=== PATIENT | female | born 1985 | race Caucasian/White ===

== ENCOUNTER → 2016-07-22 | Outpatient (CLI) | payer BC, OTHER ==
[2016-07-22 11:15] LABS: CH 31.9; CHCM 34.5; HCT 32.5 % (34.0-46.0); HDW 2.71; HGB 10.9 gm/dL (11.4-16.0); MCHC 33.4 g/dL (31.0-37.0); MCV 92.8 fL (80.0-100.0); Mean Platelet Volume 7.3; RDW 13.4 % (11.5-15.5); WBC 13.6 k/uL (3.8-10.6)
== END | disposition home or self-care (01) ==
LOC: LABWHC1 09:33
PROVIDERS: ATTEND Obstetrics & Gynecology
DX: Z34.92 Encounter for supervision of normal pregnancy, unspecified, second trimester (principal); Z3A.00 Weeks of gestation of pregnancy not specified
CPT/HCPCS: 36415; 82950; 85027; 86850

== ENCOUNTER 2016-08-01 23:05 | Outpatient (CLI) | payer BC, OTHER | END 2016-08-01 23:55 | disposition home or self-care (01) | LOC: FBPOP 23:05 | PROVIDERS: ATTEND Obstetrics & Gynecology | DX: O26.853 Spotting complicating pregnancy, third trimester (principal); Z3A.29 29 weeks gestation of pregnancy | CPT/HCPCS: 59025; 99213 ==

== ENCOUNTER → 2016-08-22 | Outpatient (CLI) | payer BC, OTHER ==
--- NOTE | 2016-08-22 13:40 | US ---
EXAMINATION TYPE: US OB anatomy transabd third trimester DATE OF EXAM: 08/22/2016 10:02 AM COMPARISON: NONE HISTORY: LGA, smoker; TECHNIQUE: Transabdominal (TA) EXAM MEASUREMENTS: GESTATIONAL AGE / DATING Physician Established: (32 weeks/6 days) EDC: 10/11/2016 Dates by LMP: (32 weeks/6 days) EDC: 10/11/2016 Dates by First Scan: (today Dates by Current Scan for: (32 weeks/4 days) EDC: 10/13/2016 SURVEY IUP: Single PLACENTA: Anterior PREVIA: No previa BAMBI: 19.2 cm Normal CERVICAL LENGTH (transabdominal: norm > 3.0cm): 3.4 cm BIOMETRY PRESENTATION: Vertex LIE: Longitudinal BPD: 8.3 cm 33 weeks / 4 days HC: 30.5 cm 33 weeks / 6 days AC: 29.2 cm 33 weeks / 1 day FL: 6.2 cm 32 weeks / 0 day ESTIMATED WEIGHT IN GRAMS: 2078.0 grams ESTIMATED WEIGHT IN LBS/OZ: 4 lbs. 9 oz. WEIGHT PERCENTAGE BASED ON ESTABLISHED DATE: 42.1 % HC/AC: 1.05 FL/AC: 21.11 HEART RATE: 143 bpm RHYTHM: Normal ANATOMY SEEN (within normal limits): Midline Falx Stomach Situs Nose / Lips Diaphragm Bladder Cord Insert Three Vessel Cord Longitudinal Spine Transverse Spine Legs (bilateral) ANATOMY SEEN (does not appear within normal limits): ANATOMY NOT SEEN: * Lateral Vent (< 1 cm) cm * Cisterna Magna (< 1.1 cm) cm * Nuchal Fold (< 0.6 cm) cm * Cerebellum (varies with age) cm Choroid Plexus (bilateral) Cavus Septi Pellucidi Four Chamber Heart Outflow tracts: LVOT/RVOT Arms (bilateral) Kidneys (bilateral) TECHNOLOGIST IMPRESSION: Single, live IUP,32 weeks/4 days, EDC: 10/13/2016; HR 143 bpm; Limited feta l anatomy survey due later gestation. Single live intrauterine gestation is present. Normal cephalad presentation to fetus is seen. Amnioti c fluid index is upper limits of normal. biometry measurements are congruent and within normal limits. Detailed anatomical survey shows no suspicious abnormality but is suboptimal due to advanced age, above structures are suboptimally seen during real-time scanning. Other structures noted a dayron appear satisfactory during real-time scanning and still images saved. IMPRESSION: As above.
== END | disposition home or self-care (01) ==
LOC: RADUSWWP 08:47
PROVIDERS: ATTEND Obstetrics & Gynecology
DX: O36.63X0 Maternal care for excessive fetal growth, third trimester, not applicable or unspecified (principal); Z3A.32 32 weeks gestation of pregnancy
CPT/HCPCS: 76811

== ENCOUNTER 2016-10-07 05:55 | Inpatient (IN) | payer BC, OTHER ==
[2016-10-07 06:13] VITALS: BMI 32.4
[2016-10-07] MEDS ORDERED: CARBOPROST TROMETHAMINE 250 MCG/ML 1 ML AMP IM PRN (06:13)
[2016-10-07] MEDS ORDERED: OXYTOCIN 10 UNIT/ML 1 ML VIAL IM PRN (06:13)
[2016-10-07] MEDS ORDERED: TERBUTALINE 1 MG/ML VIAL SQ PRN (06:13)
[2016-10-07] MEDS ORDERED: LIDOCAINE 1% (PF) 10 MG/ML (30 ML SDV) SQ PRN (06:13)
[2016-10-07] MEDS ORDERED: METHYLERGONOVINE 0.2 MG/ML 1 ML AMP IM PRN (06:13)
[2016-10-07 06:36] LABS: Basophils % (A) 0 %; CHCM 35.4; Eosinophils # (A) 0.1 k/uL (0-0.7); Eosinophils % (A) 1 %; HCT 32.5 % (34.0-46.0); HDW 2.87; HGB 11.5 gm/dL (11.4-16.0); Luc % (Auto) 2; Lymphocytes # (A) 2.4 k/uL (1.0-4.8); Lymphocytes % (A) 23 %; MCH 32.3 pg (25.0-35.0); MCHC 35.4 g/dL (31.0-37.0); MCV 91.1 fL (80.0-100.0); Mean Platelet Volume 7.7; Monocytes # (A) 0.4 k/uL (0-1.0); Monocytes % (A) 4 %; Neutrophils # (A) 7.2 k/uL (1.3-7.7); Neutrophils % (A) 70 %; RBC 3.56 m/uL (3.80-5.40); RDW 13.6 % (11.5-15.5); WBC 10.3 k/uL (3.8-10.6); WBC (Perox) 10.28
[2016-10-07] MEDS: LACTATED RINGERS 1,000 ML IV SCH ×4 (06:36→18:48)
[2016-10-07] MEDS: OXYTOCIN 30 UNITS/500 ML NS 30 UNIT in SALINE 1 500ML.BAG IV SCH (06:38)
[2016-10-07] MEDS ORDERED: BUPIVACAINE (PF) 0.25% 30 ML VIAL ONE (11:20)
[2016-10-07] MEDS ORDERED: SODIUM CHLORIDE 0.9% 100 ML BAG ONE (11:20)
[2016-10-07] MEDS ORDERED: fentaNYL (PF) 50 MCG/ML 5 ML AMP ONE (11:20)
[2016-10-07] MEDS ORDERED: BUPIVACAINE (PF) 0.25% 25 ML, fentaNYL (PF) 200 MCG in SODIUM CHLORIDE 0.9% 71 ML EPIDURAL ONE (11:32)
[2016-10-07] MEDS ORDERED: BUTORPHANOL 1 MG/ML 1 ML VIAL IV PRN ×2 (16:50→16:55)
[2016-10-07] MEDS ORDERED: MIDAZOLAM 2 MG/2 ML VIAL ONE (17:06)
[2016-10-07] MEDS ORDERED: ONDANSETRON 4 MG/2 ML VIAL ONE (17:06)
[2016-10-07] MEDS ORDERED: ePHEDrine 50 MG/ML 1 ML AMP ONE (17:06)
[2016-10-07] MEDS ORDERED: CHLOROPROCAINE 3% 30 MG/ML 20 ML VIAL ONE (17:06)
[2016-10-07] MEDS ORDERED: OXYTOCIN 10 UNIT/ML 1 ML VIAL IM ONE (17:06)
[2016-10-07] MEDS ORDERED: BENZOCAINE/MENTHOL SPRAY 1 GM/SPRAY AEROSOL TOPICAL PRN (17:44)
[2016-10-07] MEDS ORDERED: Acetaminophen-Codeine 300-30mg TAB PO PRN (17:44)
[2016-10-07] MEDS ORDERED: HYDROCORTISONE 2.5% RECTAL CREAM 30 GM TUBE RECTAL PRN (17:44)
[2016-10-07] MEDS ORDERED: IBUPROFEN ORAL SUSP 100 MG/5 ML CUP PO PRN (17:44)
[2016-10-07] MEDS ORDERED: ACETAMINOPHEN TAB 325 MG TAB PO PRN (17:44)
[2016-10-07] MEDS ORDERED: diphenhydrAMINE 25 MG CAP PO PRN (17:44)
[2016-10-07] MEDS ORDERED: diphenhydrAMINE 50 MG CAP PO PRN (17:44)
[2016-10-07] MEDS ORDERED: MEASLES-MUMPS-RUBELLA VACC/PF 12,500 UNIT/0.5 ML VIAL SQ ONE (17:44)
[2016-10-07] MEDS ORDERED: LANOLIN CREAM 5 GM TUBE TOPICAL PRN (17:44)
[2016-10-07] MEDS ORDERED: SIMETHICONE 80 MG CHEWABLE PO PRN (17:44)
[2016-10-07] MEDS ORDERED: WITCH HAZEL 1 EACH MED..PAD TOPICAL PRN (17:44)
[2016-10-07] MEDS ORDERED: ZOLPIDEM 5 MG TAB PO PRN (17:44)
[2016-10-07] MEDS ORDERED: diphenhydrAMINE 50 MG/ML 1 ML VIAL IVP PRN ×2 (17:44)
--- NOTE | 2016-10-07 17:47 | P.HPOB ---
History of Present Illness H&P Date: 10/07/16 Chief Complaint: term Patient is a 30-year-old at 39 weeks gestation who arrives for induction of labor. Her course overall has been unremarkable and she is feeling fine at this time. She was dilated to 2-3 cm 80% effaced -2 station artificial rupture membranes was performed and clear fluid is noted. Pitocin augmentation of labor is also being done. She plans she is an epidural for analgesia. course generally speaking has been unremarkable and her pertinent labs do include A- blood type rubella nonimmune hepatitis B surface antigen and GBS were both negative. On physical exam vital signs are stable and afebrile. Heart regular, lungs clear, extremities without pain. Pelvic exam as above. Abdomen soft gravid uterus is noted. heart tones were in the 130s and reactive. Assessment intrauterine at term. Plan expect spontaneous vaginal delivery. Past Medical History Past Medical History: No Reported History History of Any Multi-Drug Resistant Organisms: None Reported Past Surgical History: Appendectomy, Cholecystectomy Past Anesthesia/Blood Transfusion Reactions: No Reported Reaction Past Psychological History: No Psychological Hx Reported Smoking Status: Current every day smoker Past Alcohol Use History: None Reported Past Drug Use History: None Reported - Past Family History Mother Family Medical History: Hypertension Medications and Allergies Home Medications Medication Instructions Recorded Confirmed Type No Known Home Medications [No 10/07/16 10/07/16 History Known Home Medications] Allergies Allergy/AdvReac Type Severity Reaction Status Date / Time No Known Allergies Allergy Verified 10/07/16 06:07 Exam Osteopathic Statement: *. No significant issues noted on an osteopathic structural exam other than those noted in the History and Physical/Consult. - Vital Signs Vital signs: Vital Signs Temp Pulse Resp BP Pulse Ox 10/07/16 06:08 95.9 F L 94 19 133/75 100 Intake and Output 10/07/16 10/07/16 10/07/16 06:59 14:59 22:59 Output Total 200 Balance -200 Output: Urine 200 Other: Weight 87.09 kg Results Result Diagrams: 10/07/16 06:24 Abnormal Lab Results - Last 24 Hours (Table) 10/07/16 Range/Units 06:24 RBC 3.56 L (3.80-5.40) m/uL Hct 32.5 L (34.0-46.0) %
--- NOTE | 2016-10-07 17:48 | P.PROBDLV ---
Vaginal Delivery Note - . Vaginal Delivery Note: Patient progressed complete and pushed with spontaneous vaginal delivery of a viable male over an intact perineum. Falling deliver the head nuchal cord 1 was easily reduced an interim posterior shoulders were delivered with gentle downward and upward traction. Followed deliver the baby mouth nares were bulb suctioned and the baby was then placed on mother's abdomen where the umbilical cord was clamped cut usual fashion. scores were 9 and 9 at one and 5 minutes respectively weight was 6 lbs. 7 oz. During deliver the placenta the cord did pop off. I did try to manually extract the placenta following this but the placenta was 2 adherent even after 25-30 minutes of waiting. And therefore she was taken to the operating room for retained placenta. Please see separate operative note.
--- NOTE | 2016-10-07 17:51 | P.OP ---
Date of Procedure: 10/07/16 Preoperative Diagnosis: Retained placenta Postoperative Diagnosis: Same Procedure(s) Performed: Manual extraction of placenta Anesthesia: spinal, epidural Surgeon: Pancho Carmona Estimated Blood Loss (ml): 50 Pathology: other (Placenta) Condition: stable Disposition: floor Operative Findings: Retained placenta noted with fundal implantation Description of Procedure: Gen. was taken to the operating suite where an epidural anesthetic was found to be adequate. She was prepped and draped in the normal sterile fashion and placed in dorsolithotomy position. Once comfortable I was able to using manual manipulation get to the fundus of the uterus and using a cleaving motion was able to separate the placenta from the uterine wall. Once is accomplished placenta was delivered without difficulty. However prior to this the placenta was firmly adherent and ultimately the procedure was not done until almost an hour after the delivery. Once completed big patient is returned to her room with no significant bleeding noted. Pitocin was also added to the IV following removal.
[2016-10-07 18:48] VITALS: RESP 16
[2016-10-07] MEDS: Acetaminophen-Codeine 300-30mg TAB PO PRN ×2 (19:26→23:44)
[2016-10-07] MEDS: SENNOSIDES-DOCUSATE SODIUM 1 EACH TAB PO SCH (22:00)
[2016-10-07] MEDS ORDERED: Rhogam IMMUNE GLOBULIN 1,500 UNIT/1 ML IM ONE (23:09)
[2016-10-08] MEDS: IBUPROFEN 600 MG TAB PO PRN ×2 (07:33→16:23)
--- NOTE | 2016-10-08 09:09 | P.DS ---
Providers Date of admission: 10/07/16 05:55 Expected date of discharge: 10/08/16 Attending physician: Pancho Carmona [facility] Course: overall Reina is doing very well. She is involuting, voiding and she is tolerating her diet voices no complaints this time. She is requesting discharge home today. her bleeding is currently reported be very light she reports no passage of clots. A CBC is pending. As long as the CBC is not too low we'll plan to let her go home as she is essentially asymptomatic today. review from yesterday shows it to be 11. I believe she had approximately 600 mL of blood loss following the delivery vital signs are stable and afebrile. heart regular, lungs clear, extremities without pain. Abdomen is soft uterus is firm below the umbilicus. assessment day 1. plan discharged home follow up with me in 6 weeks. all of the discharge instructions are reviewed with the patient and she is again stable at this time ruptured for Motrin has been provided as has a prescription for Keflex as precaution due to manipulation of the uterus with removal of the placenta. Patient Condition at Discharge: Good Plan - Discharge Summary New Discharge Prescriptions: Cephalexin [Keflex] 500 mg PO Q6HR #20 cap Ibuprofen [Motrin] 600 mg PO Q6HR PRN #30 tab PRN Reason: Pain Discharge Medication List Cephalexin [Keflex] 500 mg PO Q6HR #20 cap 10/08/16 [Rx] Ibuprofen [Motrin] 600 mg PO Q6HR PRN #30 tab 10/08/16 [Rx] Follow up Appointment(s)/Referral(s): Pancho Carmona DO [Doctor of Osteopathic Medicine] - 6 Weeks Activity/Diet/Wound Care/Special Instructions: No heavy lifting, limit stairs and driving and pelvic rest. If any high temperatures, heavy bleeding, or severe pain, call my office Discharge Disposition: HOME SELF-CARE
[2016-10-08 11:02] LABS: Basophils % (A) 0 %; CH 31.9; CHCM 34.8; Eosinophils # (A) 0.1 k/uL (0-0.7); Eosinophils % (A) 1 %; HCT 21.5 % (34.0-46.0); HDW 2.88; Luc # (Auto) 0.25; Luc % (Auto) 2; Lymphocytes # (A) 2.5 k/uL (1.0-4.8); Lymphocytes % (A) 19 %; MCH 32.5 pg (25.0-35.0); MCHC 35.3 g/dL (31.0-37.0); MCV 92.2 fL (80.0-100.0); Mean Platelet Volume 7.8; Monocytes # (A) 0.5 k/uL (0-1.0); Monocytes % (A) 4 %; Neutrophils # (A) 9.7 k/uL (1.3-7.7); Neutrophils % (A) 75 %; RBC 2.33 m/uL (3.80-5.40); RDW 13.8 % (11.5-15.5); WBC 13.1 k/uL (3.8-10.6); WBC (Perox) 13.17
[2016-10-08 11:07] LABS: HGB 7.6 gm/dL (11.4-16.0)
[2016-10-08] MEDS: SENNOSIDES-DOCUSATE SODIUM 1 EACH TAB PO SCH (20:02)
[2016-10-08] MEDS: OXYTOCIN 30 UNITS/500 ML NS 30 UNIT in SALINE 1 500ML.BAG IV SCH (20:02)
[2016-10-08] MEDS: LACTATED RINGERS 1,000 ML IV SCH (20:02)
[2016-10-09] MEDS: Acetaminophen-Codeine 300-30mg TAB PO PRN (00:02)
[2016-10-09] MEDS: IBUPROFEN 600 MG TAB PO PRN (07:32)
[2016-10-09] MEDS: SENNOSIDES-DOCUSATE SODIUM 1 EACH TAB PO SCH (07:33)
[2016-10-09 07:38] VITALS: BP 120/75; PULSE 89; TEMP 98.2
--- NOTE | 2016-10-09 07:52 | P.DS ---
Providers Date of admission: 10/07/16 05:55 Expected date of discharge: 10/09/16 Attending physician: Pancho Carmona Primary care physician: [facility] Course: Patti seen and evaluated today. She is day 2. She stayed yesterday as the baby was jaundiced and needed to have a bilirubin light and therefore was kept. She'll be discharged home today with no changes from yesterday's status. She is stable for discharge at this time Patient Condition at Discharge: Good Plan - Discharge Summary New Discharge Prescriptions: Cephalexin [Keflex] 500 mg PO Q6HR #20 cap Ibuprofen [Motrin] 600 mg PO Q6HR PRN #30 tab PRN Reason: Pain Discharge Medication List Cephalexin [Keflex] 500 mg PO Q6HR #20 cap 10/08/16 [Rx] Ibuprofen [Motrin] 600 mg PO Q6HR PRN #30 tab 10/08/16 [Rx] Follow up Appointment(s)/Referral(s): Pancho Carmona DO [Doctor of Osteopathic Medicine] - 6 Weeks Activity/Diet/Wound Care/Special Instructions: No heavy lifting, limit stairs and driving and pelvic rest. If any high temperatures, heavy bleeding, or severe pain, call my office Discharge Disposition: HOME SELF-CARE
== END 2016-10-09 15:10 | disposition home or self-care (01) | DRG 767 ==
LOC: 4FBP 05:55
PROVIDERS: ADMIT Obstetrics & Gynecology; ATTEND Obstetrics & Gynecology
PROC: 10D17ZZ Extraction of Products of Conception, Retained, Via Natural or Artificial Opening (ICD-10-PCS; 2016-10-07)
PROC: 00HU33Z Insertion of Infusion Device into Spinal Canal, Percutaneous Approach (ICD-10-PCS; 2016-10-07)
PROC: 3E0R3CZ (ICD-10-PCS; 2016-10-07)
PROC: 10E0XZZ Delivery of Products of Conception, External Approach (ICD-10-PCS; principal; 2016-10-07 06:30)
DX: O69.81X0 Labor and delivery complicated by cord around neck, without compression, not applicable or unspecified (principal); F17.200 Nicotine dependence, unspecified, uncomplicated; O73.0 Retained placenta without hemorrhage; O99.334 Smoking (tobacco) complicating childbirth; Z37.0 Single live birth; Z3A.39 39 weeks gestation of pregnancy; Z82.49 Family history of ischemic heart disease and other diseases of the circulatory system
CPT/HCPCS: 85025; 85461; 88307; 90707